=== PATIENT | female | born 1990 | race Two or more races ===

== ENCOUNTER → 2024-04-20 | Outpatient (CLI) | payer BC, MEDICAID, SELFPAY ==
[2024-04-20 12:25] LABS: Basophils # (Auto) 0.1 Thou/mm3 (0.0-0.2); Basophils % (Auto) 1 % (0-2.5); Eosinophils # (Auto) 0.3 Thou/mm3 (0.0-0.5); Eosinophils % (Auto) 2 % (0-10); Hematocrit 41.5 % (36.0-46.0); Immature Granulocytes % (Auto) 0 % (0-0); Immature Granulocytes Auto 0.02 Thou/mm3 (0.00-0.00); Lymphocytes # (Auto) 3.1 Thou/mm3 (1.0-4.8); Lymphocytes % (Auto) 30 % (10-50); Mean Corpuscular HGB Conc 33.7 g/dl (31.0-37.0); Mean Corpuscular Hemoglobin 27.3 pg (25.0-35.0); Mean Corpuscular Volume 81 fL (80-100); Monocytes # (Auto) 0.9 Thou/mm3 (0.0-0.8); Monocytes % (Auto) 9 % (0-12); Neutrophils % (Auto) 58 % (37-80); Nucleated Red Blood Cell % 0 /100 WBC (0); Platelet Count 400 Thou/mm3 (140-440); RDW Standard Deviation 38.4 fL (36.4-46.3); Red Blood Count 5.13 Miln/mm3 (4.00-5.20); White Blood Count 10.4 Thou/mm3 (3.6-11.0)
[2024-04-20 12:36] LABS: Glucose Estimated Average 114 mg/dL (80-131); Hemoglobin A1C 5.6 % Hgb (4.8-6.0)
[2024-04-20 12:43] LABS: Alanine Aminotransferase 72 U/L (10-49); Alkaline Phosphatase 141 U/L (46-116); Anion Gap 7 (7-16); Aspartate Amino Transferase 33 U/L (0-34); BUN/Creatinine Ratio 14 Ratio (12-20); Bilirubin,Direct 0.3 mg/dL (0.0-0.3); Bilirubin,Total 0.8 mg/dL (0.3-1.2); Blood Urea Nitrogen 10 mg/dL (9-23); Calcium 9.8 mg/dL (8.3-10.6); Carbon Dioxide 28.6 mMol/L (20.0-31.0); Chloride 103 mMol/L (98-107); Cholesterol 170 mg/dL (132-200); Creatinine (Component) 0.7 mg/dL (0.6-1.3); Free T4 (Free Thyroxine) 1.25 ng/dL (0.89-1.76); Glucose 85 mg/dL (74-106); HDL Cholesterol 43 mg/dL (40-60); LDL Cholesterol,Calculated 110 mg/dL (0-130); Osmolality,Calculated 275 (275-295); Potassium 4.2 mMol/L (3.4-5.1); Sodium 139 mMol/L (136-145); Thyroid Stimulating Hormone 1.44 uIU/mL (0.55-4.78); Total Protein 8.3 gm/dL (5.7-8.2); Triglycerides 85 mg/dL (30-150); eGFR > 60 See Note
== END | disposition home or self-care (01) ==
PROVIDERS: PCP Nurse Practitioner Family; Referring Provider Internal Medicine Cardiovascular Disease; Visit Provider Internal Medicine Cardiovascular Disease
DX: I20.9 Angina pectoris, unspecified (principal); E78.5 Hyperlipidemia, unspecified; R73.03 Prediabetes; E07.9 Disorder of thyroid, unspecified
CPT/HCPCS: 36415; 80048; 80061; 80076; 83036; 84439; 84443; 85025

== ENCOUNTER → 2024-08-18 | Outpatient (CLI) | payer BC, MEDICAID, SELFPAY ==
[2024-08-18 09:29] LABS: Collection Type, Urine Clean Catch
[2024-08-18 09:50] LABS: Basophils # (Auto) 0.1 Thou/mm3 (0.0-0.2); Basophils % (Auto) 1 % (0-2.5); Eosinophils # (Auto) 0.2 Thou/mm3 (0.0-0.5); Eosinophils % (Auto) 3 % (0-10); Hematocrit 36.7 % (36.0-46.0); Hemoglobin 12.3 g/dL (12.0-16.0); Immature Granulocytes % (Auto) 0 % (0-0); Immature Granulocytes Auto 0.02 Thou/mm3 (0.00-0.00); Lymphocytes # (Auto) 2.8 Thou/mm3 (1.0-4.8); Lymphocytes % (Auto) 30 % (10-50); Mean Corpuscular HGB Conc 33.5 g/dl (31.0-37.0); Mean Corpuscular Hemoglobin 26.7 pg (25.0-35.0); Mean Corpuscular Volume 80 fL (80-100); Monocytes # (Auto) 0.9 Thou/mm3 (0.0-0.8); Monocytes % (Auto) 9 % (0-12); Neutrophils # (Auto) 5.4 Thou/mm3 (1.8-7.7); Neutrophils % (Auto) 58 % (37-80); Nucleated Red Blood Cell % 0 /100 WBC (0); Platelet Count 333 Thou/mm3 (140-440); RDW Standard Deviation 36.9 fL (36.4-46.3); Red Blood Count 4.61 Miln/mm3 (4.00-5.20); White Blood Count 9.3 Thou/mm3 (3.6-11.0)
[2024-08-18 09:58] LABS: Bilirubin,Urine Negative (Negative); Blood,Urine Negative (Negative); Clarity,Urine Clear (Clear/Hazy); Color,Urine Lt-Yellow (Lt Yel-Yel); Glucose, Urine Negative (Negative); Ketones,Urine Negative (Negative); Leukocyte Esterase,Urine Negative (Negative); Nitrite,Urine Negative (Negative); PH,Urine 6.5 (5.0-7.0); Protein,Urine Negative (Neg - Trace); RBC,Urine 4 /hpf (0-3); Specific Gravity,Urine 1.024 (1.001-1.035); Squamous Epithelial Cell,Urine < 1 /hpf (0-5); Urobilinogen,Urine Negative mg/dL (0.0-1.0); WBC,Urine 1 /hpf (0-5)
[2024-08-18 10:10] LABS: Vitamin D 25 Hydroxy Total 35.7 ng/mL (7.3-40.2)
[2024-08-18 10:17] LABS: Alanine Aminotransferase 66 U/L (10-49); Albumin, Serum 4.4 gm/dL (3.5-5.0); Albumin/Globulin Ratio 1.4 (1.2-2.2); Alkaline Phosphatase 122 U/L (46-116); Anion Gap 8 (7-16); Aspartate Amino Transferase 37 U/L (0-34); BUN/Creatinine Ratio 16 Ratio (12-20); Bilirubin,Total 0.6 mg/dL (0.3-1.2); Blood Urea Nitrogen 11 mg/dL (9-23); Carbon Dioxide 23.9 mMol/L (20.0-31.0); Cardiac Risk Estimate 3.8 RATIO (3.7-5.6); Chloride 106 mMol/L (98-107); Cholesterol 145 mg/dL (132-200); Creatinine (Component) 0.7 mg/dL (0.6-1.3); Globulin 3.2 gm/dL (2.3-3.5); Glucose 111 mg/dL (74-106); HDL Cholesterol 38 mg/dL (40-60); LDL Cholesterol,Calculated 90 mg/dL (0-130); Osmolality,Calculated 276 (275-295); Sodium 138 mMol/L (136-145); Thyroid Stimulating Hormone 1.97 uIU/mL (0.55-4.78); Total Protein 7.6 gm/dL (5.7-8.2); Triglycerides 85 mg/dL (30-150); eGFR > 60 See Note
== END | disposition home or self-care (01) ==
PROVIDERS: PCP Nurse Practitioner Family; Referring Provider Nurse Practitioner Family; Visit Provider Nurse Practitioner Family
DX: Z00.00 Encounter for general adult medical examination without abnormal findings (principal); Z13.0 Encounter for screening for diseases of the blood and blood-forming organs and certain disorders involving the immune mechanism; Z13.29 Encounter for screening for other suspected endocrine disorder; Z13.21 Encounter for screening for nutritional disorder; Z13.1 Encounter for screening for diabetes mellitus
CPT/HCPCS: 36415; 80053; 80061; 81001; 82306; 84443; 85025; 87077; 87086; 87186

== ENCOUNTER 2024-12-18 09:30 | Emergency (ER) | payer BC, SELFPAY ==
--- NOTE | 2024-12-18 09:38 | EKG_ITS ---
[facility] Test Date: 2024-12-18 Pat Name: BRIAN VICENTE Department: Room: - Gender: Female K 12 Principal: : 1990 Requested By: ED Temporary Provider Order Number: [id number] Reading MD: ED Temporary Provider Measurements Intervals [place] Rate: 74 P: 26 DC: 146 QRS: 14 QRSD: 89 T: 21 QT: 367 QTc: 409 Interpretive Statements SINUS RHYTHM MINIMAL VOLTAGE CRITERIA FOR LVH, CONSIDER NORMAL VARIANT [MEETS CRITERIA IN ONE OF: R(aVL), S(V1), R(V5), R(V5/V6)+S(V1)] Compared to ECG 01/12/2024 21:45:37 Intraventricular conduction delay no longer present /store/S0/[id number].pdf
[2024-12-18 09:40] VITALS: PULSE 78; O2SAT 97
[2024-12-18 09:42] VITALS: BP 151/78; PULSE 78; RESP 18; TEMP 37.2; O2SAT 97
[2024-12-18 09:46] VITALS: BMI 40.3
--- NOTE | 2024-12-18 10:11 | XR_ITS ---
Examination: AP chest single view Technique one AP portable upright chest single view Date and time: December 18, 2024 1016 hours INDICATIONS: Anterior chest pain today. FINDINGS: No significant cardiac enlargement. No pneumonia or pulmonary edema. The osseous structures are intact IMPRESSION: No active disease.
--- NOTE | 2024-12-18 10:31 | PD.EDCHEST ---
ED Chest Pain RME/HPI General Chief Complaint: Chest Pain Stated Complaint: CHEST PAIN Time Seen by Provider: 12/18/24 09:57 Arrival date/time: 12/18/24 09:30 Mode of arrival: EMS RME / HPI RME / HPI narrative: Ms Lloyd is a 34-year-old female with past medical history of GERD and depression presented to [facility] emergency department on 12/18/2024 with a chief complaint of chest pain. Patient reported that earlier at work today she had an episode of chest pain which she describes as a pressure-like pain in the midsternal region radiating to the back and left arm, patient also reported that she did feel a stabbing sensation towards her back. Patient does endorse following up with her assistant finance manager outpatient, follows Dr. Huffman, reports that she had a echocardiogram and stress test done outpatient which were unremarkable. EKG obtained at bedside showed no acute ST-T changes. Related Data On Oral Contraceptives: No Home Medications ?Medication ?Instructions ?Recorded ?Confirmed acetaminophen 500 mg capsule 500 mg PO Q6H PRN Pain 07/04/20 11/09/20 [id number] 1 tab PO PRN PRN Pain 07/04/20 11/09/20 500 mg-60 mg-15 mg tablet (Midol Complete) ascorbic acid (vitamin C) 500 mg 500 mg PO QDAY 07/04/20 11/09/20 tablet (Vitamin C) ascorbic acid 125 mg-collagen, 1 cap PO DAILY 07/04/20 11/09/20 hydrolyzed 740 mg capsule (Collagen Plus Vitamin C) cholecalciferol (vitamin D3) 25 25 mcg PO QDAY 07/04/20 11/09/20 mcg (1,000 unit) tablet (Vitamin D3) citalopram 10 mg tablet (Celexa) 10 mg PO DAILY 07/04/20 11/09/20 ibuprofen 800 mg tablet 800 mg PO Q8H PRN Pain 07/04/20 11/09/20 phentermine 37.5 mg tablet 37.5 mg PO QDAY 07/04/20 11/09/20 zinc 50 mg capsule 50 mg PO QDAY 07/04/20 11/09/20 Previous Rx's ?Medication ?Instructions ?Recorded amoxicillin 500 mg-potassium 1 tab PO Q12H #20 tabs 06/14/22 clavulanate 125 mg tablet (Augmentin) hydrocodone 5 mg-acetaminophen 325 1 tab PO Q8H PRN pain #10 tabs 07/13/ mg tablet Allergies Allergy/AdvReac Type Severity Reaction Status Date / Time No Known Allergies Allergy Verified 11/09/20 06:58 Review of Systems Review of Systems Narrative Review of Systems: ROS: -CONSTITUTIONAL: Denies weight loss, fever and chills. -HEENT: Denies changes in vision and hearing. -RESPIRATORY: Denies SOB and cough. -CV: Denies palpitations and positive for Chest Pain. -GI: Denies abdominal pain, nausea, vomiting,constipation and diarrhea. -: Denies dysuria and urinary frequency. -MSK: Denies myalgia and joint pain. -SKIN: Denies rash and pruritus. -NEUROLOGICAL: Denies headache and syncope. -PSYCHIATRIC: Denies recent changes in mood. Denies anxiety and depression. Past Medical History Past Medical History Comments PMH COMMENT: PMH: Positive for GERD, depression PSHx: Cholecystectomy Allergies: No known allergies Social history: -Smoking: Denies -Alcohol Use: Denies -Illicit Drug Use: Denies -Occupation: Works at [employer] -Martial Status: , at bedside Family History: Report that her father had arrhythmias, did not have a pacemaker placed. No history of CAD in immediate family Home medications: Wellbutrin and propranolol, [id number]-[id number] pantoprazole as needed ED Exam Narrative Physical exam: Physical Exam General: Awake and in no acute distress. Conversational and non-toxic appearing. HEENT: Normocephalic, atraumatic, mucous membranes moist. Heart: Regular rate and rhythm, no murmurs. Lungs: Clear to auscultation with no wheezing or crackles. Abdomen: Soft, obese, nondistended, nontender, positive bowel sounds. ?No guarding or rebound tenderness. Neurologic: Alert and oriented x3, no gross neurological deficit, and patient able to move all 4 extremities. Extremities: No edema. Skin: No rash or ecchymoses. Course Quality Measures none Orders Category Date Time Status EKG (ED ONLY) *Do not use* NOW Care 12/18/24 09:38 Completed EKG (ED ONLY) *Do not use* NOW Care 12/18/24 10:01 Completed CXRP [XR chest 1V portable] Stat Exams 12/18/24 10:11 Completed EKG (ED Only) Stat Exams 12/18/24 09:38 Draft EKG (ED Only) Stat Exams 12/18/24 10:01 Ordered BNP [B-Type Natriuretic Peptide] Stat Lab 12/18/24 10:27 Completed CBC Stat Lab 12/18/24 10:27 Completed CMP [Comprehensive Metabolic Panel] Stat Lab 12/18/24 10:27 Completed Free T4 (Free Thyroxine) Stat Lab 12/18/24 10:27 Completed INR [Prothrombin Time with INR] Stat Lab 12/18/24 10:27 Completed Lactate (Lactic Acid) Stat Lab 12/18/24 10:27 Completed Magnesium Stat Lab 12/18/24 10:27 Completed PTT [Partial Thromboplastin Time] Stat Lab 12/18/24 10:27 Completed Phosphorous Stat Lab 12/18/24 10:27 Completed TSH [Thyroid Stimulating Hormone] Stat Lab 12/18/24 10:27 Completed Troponin I Stat Lab 12/18/24 10:27 Completed Troponin I Stat Lab 12/18/24 12:33 Completed Vital Signs Vital signs: Vital Signs Temperature 99 F 12/18/24 09:42 Pulse Rate 78 12/18/24 09:42 Respiratory Rate 18 12/18/24 09:42 Blood Pressure 151/78 H 12/18/24 09:42 Pulse Oximetry (%) 97 12/18/24 09:42 Oxygen Delivery Method Room Air 12/18/24 09:42 Chest Pain MDM Narrative MDM Narrative:: #Chest pain Patient presented with 1 episode of symptomatic chest pain, described as cardiac chest pain. Follows up with assistant finance manager outpatient, EKG obtained at bedside showed no acute ST-T changes, troponins negative x 2 Findings discussed with patient's assistant finance manager Dr. Huffman over the phone, he reported that he will follow-up with the patient outpatient this week Patient did not have any episodes of chest pain during the ED visit Chest x-ray was negative for any mediastinal widening Vital stable except for elevated blood pressure readings during the ED stay Case discussed with Attending Physician Dr. Enrique Mendoza MD Internal Medicine PGY-2 Disclaimer: This note was dictated by speech recognition. Minor errors in water control supervisor may be present due to voice recognition software. Patient data External records reviewed:: [facility] previous records and EMS form Clinical information provided by:: patient and EMS Social determinants that could affect healthcare access:: none Patient has the following chronic illnesses:: Depression How is presenting disease/condition affected by chronic disease/condition?: uneffected by Evaluation data The following diagnostics were reviewed and interpreted by me:: lab results, radiology exam(s) and EKG tracing(s) Lab and/or radiology exams considered but not ordered:: None Interpretation Summary: Labs unremarkable except for mild transaminitis AST 145, ALT 225. On review of chart noted to have chronically elevated transaminitis, patient had cholecystectomy done, has been diagnosed with MASLD, informed patient to follow-up with PCP for further workup. EKG unremarkable for any acute ST-T changes Chest x-ray unremarkable for any mediastinal widening or acute disease Medications / Prescriptions Medications or Prescriptions considered but not ordered:: None Medication administrations:: None Consultations Consultation(s) initiated? (list below): Yes Consultation #1 (Physician, Specialty, Details): Dr. Huffman, assistant finance manager, discussed findings with Dr. Huffman over the phone, he will follow-up with patient outpatient in 1 week. Informed patient to call his office. Diagnosis Chest Pain Differential Diagnosis: stable angina, chest pain and other Most likely diagnosis given after review of the tests above:: Cardiac chest pain, stable angina likely Admission Indicated Admission indicated?: not indicated Admission Request Was there a request for admission?: No Disposition Plan Disposition Plan: Discharge Discharge Attestation Discharge Attestation: The patient and all family members were given an opportunity to ask questions and understood the discharge instructions. Discharge instructions specifically effects, indications for sooner follow up or return to the emergency department, and the expected course of current diagnosis. Patient condition: Stable Discharge Plan Plan Patient Disposition: HOME (Self Care) Patient condition on transfer: Stable Health Concerns: - Discussed your results and findings with your assistant finance manager Dr. Huffman, he recommends outpatient follow-up in his office within 1 week - Continue all home medications as prescribed to you - Follow-up with primary care physician outpatient in 1 to 2 weeks - Return to emergency department if you have worsening chest pain or other symptoms. - You have transaminitis which has been chronic, follow-up with your primary care physician for further workup Prescriptions/Referrals Prescriptions/Med Rec: No Action citalopram [Celexa] 10 mg Tablet 10 mg PO DAILY phentermine 37.5 mg Tablet 37.5 mg PO QDAY ibuprofen 800 mg Tablet 800 mg PO Q8H PRN (Reason: Pain) ascorbic acid (vitamin C) [Vitamin C] 500 mg Tablet 500 mg PO QDAY zinc 50 mg Capsule 50 mg PO QDAY Collagen Plus Vitamin C 125-740 mg Capsule 1 cap PO DAILY cholecalciferol (vitamin D3) [Vitamin D3] 25 mcg (1,000 unit) Tablet 25 mcg PO QDAY acetaminophen 500 mg Capsule 500 mg PO Q6H PRN (Reason: Pain) Midol Complete 500-60-15 mg Tablet 1 tab PO PRN PRN (Reason: Pain) amoxicillin-pot clavulanate [Augmentin] 500-125 mg tablet 1 tab PO Q12H Qty: 20 0RF hydrocodone-acetaminophen 5-325 mg tablet 1 tab PO Q8H MDD 10 PRN (Reason: pain) Qty: 10 0RF Referrals: Lencho Huffman MD [Physician, Cardiology] - In 1 week DAMASO FALCON [Primary Care Provider] - In 1 week Problem List Clinical Impression: Chest pain of unknown etiology Patient/Caregiver Discharge Instructions Discharge Activity: activity as tolerated Education Materials: Understanding the Pain Response, Measuring Your Pain, ED Chest Pain, Uncertain Cause Print Language: Spanish Stand Alone Forms: Janette Award Info., Patient Portal Info Letter
[2024-12-18 10:34] LABS: Lactate (Lactic Acid) 0.9 mMol/L (0.4-2.0)
[2024-12-18 10:35] LABS: Basophils # (Auto) 0.1 Thou/mm3 (0.0-0.2); Basophils % (Auto) 1 % (0-2.5); Eosinophils # (Auto) 0.3 Thou/mm3 (0.0-0.5); Eosinophils % (Auto) 3 % (0-10); Hematocrit 37.9 % (36.0-46.0); Hemoglobin 12.4 g/dL (12.0-16.0); Immature Granulocytes Auto 0.04 Thou/mm3 (0.00-0.00); Lymphocytes # (Auto) 2.9 Thou/mm3 (1.0-4.8); Lymphocytes % (Auto) 28 % (10-50); Mean Corpuscular HGB Conc 32.7 g/dl (31.0-37.0); Mean Corpuscular Hemoglobin 25.6 pg (25.0-35.0); Mean Corpuscular Volume 78 fL (80-100); Monocytes # (Auto) 0.9 Thou/mm3 (0.0-0.8); Monocytes % (Auto) 9 % (0-12); Neutrophils # (Auto) 6.1 Thou/mm3 (1.8-7.7); Neutrophils % (Auto) 59 % (37-80); Nucleated Red Blood Cell # 0.00 Thou/mm3 (0.00-0.00); Nucleated Red Blood Cell % 0 /100 WBC (0); Platelet Count 345 Thou/mm3 (140-440); RDW Standard Deviation 40.2 fL (36.4-46.3); Red Blood Count 4.84 Miln/mm3 (4.00-5.20); White Blood Count 10.2 Thou/mm3 (3.6-11.0)
[2024-12-18 11:09] LABS: Alanine Aminotransferase 225 U/L (10-49); Albumin, Serum 4.3 gm/dL (3.5-5.0); Albumin/Globulin Ratio 1.3 (1.2-2.2); Alkaline Phosphatase 146 U/L (46-116); Anion Gap 11 (7-16); Aspartate Amino Transferase 145 U/L (0-34); BUN/Creatinine Ratio 15 Ratio (12-20); Bilirubin,Total 0.6 mg/dL (0.3-1.2); Blood Urea Nitrogen 9 mg/dL (9-23); Calcium 9.5 mg/dL (8.3-10.6); Calcium (Corrected) 9.5 mg/dL (8.5-10.1); Carbon Dioxide 23.8 mMol/L (20.0-31.0); Chloride 104 mMol/L (98-107); Creatinine (Component) 0.6 mg/dL (0.6-1.3); Estimated Creatinine Clearance 154.4 mL/min (>60); Free T4 (Free Thyroxine) 1.14 ng/dL (0.89-1.76); Globulin 3.3 gm/dL (2.3-3.5); Glucose 111 mg/dL (74-106); Magnesium 2.0 mg/dL (1.6-2.6); Osmolality,Calculated 277 (275-295); Phosphorous 3.8 mg/dL (2.4-5.1); Potassium 4.2 mMol/L (3.4-5.1); Sodium 139 mMol/L (136-145); Thyroid Stimulating Hormone 1.78 uIU/mL (0.55-4.78); Total Protein 7.6 gm/dL (5.7-8.2); Troponin I < 0.002 ng/mL (0.0-0.045); eGFR > 60 See Note
[2024-12-18 11:34] LABS: INR 1.0 (0.9-1.3); Partial Thromboplastin Time 25.6 Seconds (22.0-36.0); Prothrombin Time 11.4 Seconds (9.0-12.2)
[2024-12-18 12:25] LABS: B-Type Natriuretic Peptide < 20 pg/mL (0-100)
[2024-12-18 13:07] LABS: Troponin I < 0.002 ng/mL (0.0-0.045)
== END 2024-12-18 13:43 | disposition home or self-care (01) ==
PROVIDERS: Emergency Provider Emergency Medicine; PCP Nurse Practitioner Family
DX: R07.9 Chest pain, unspecified (principal); R94.31 Abnormal electrocardiogram [ECG] [EKG]
CPT/HCPCS: 36415; 71045; 80053; 83605; 83735; 83880; 84100; 84439; 84443; 84484; 85025; 85610; 85730; 93005; 99284

== ENCOUNTER → 2025-01-04 | Outpatient (CLI) | payer BC, SELFPAY ==
[2025-01-04 09:46] LABS: Sed Rate (ESR) 37 mm/hr (0-20)
[2025-01-04 10:01] LABS: C-Reactive Protein 0.9 mg/dL (0.0-0.9)
== END | disposition home or self-care (01) ==
LOC: COPL 08:12
PROVIDERS: PCP Nurse Practitioner Family; Referring Provider Internal Medicine Cardiovascular Disease; Visit Provider Internal Medicine Cardiovascular Disease
DX: R07.89 Other chest pain (principal)
CPT/HCPCS: 36415; 85652; 86140